=== PATIENT | female | born 1965 | race Caucasian/White ===

== ENCOUNTER 2022-08-05 07:16 | Emergency (ER) | payer MEDICAID ==
[~2022-08-05] VITALS: Ht 157.5 cm; Wt 59.0 kg
[2022-08-05] MEDS ORDERED: IBUPROFEN 600MG TABLET PO ONE (07:45)
[2022-08-05] MEDS ORDERED: ACETAMINOPHEN 325MG TABLET PO ONE (07:45)
[2022-08-05] MEDS ORDERED: NAPR-1176 MT (07:47)
[2022-08-05] MEDS ORDERED: LIDO700A15 TP (07:47)
[2022-08-05 08:14] VITALS: BP 145/78
== END 2022-08-05 08:58 | disposition home or self-care (01) ==
LOC: ER 07:34
DX: M54.50 Low back pain, unspecified (principal)
CPT/HCPCS: 99283